=== PATIENT | male | born 1960 | race Caucasian/White ===

== ENCOUNTER → 2016-04-12 | Outpatient (CLI) | payer BC ==
[~2016-04-12] MED LIST: HYDR25T PO; K-Lyte/Cl25 MEQ PO; MULTI VITAMINS1 TAB PO; ZYRTEC10 MG PO
--- NOTE | ~2016-04-12 | EEG ---
[place], [place] ELECTROENCEPHALOGRAM REPORT NAME: EVERT CLEANING UNIT #: [id number] ROOM: DOCTOR: JR PATRICK MD,TRINA DOS: 04/12/2016 INTERPRETATION: This 55-year-old man on no medications displayed the following underlying rhythms: fairly well organized synchronous 12 Hz, 20-30 microvolts alpha rhythm in both posterior regions. 20 Hz, 10 microvolts, beta rhythms were noted in both precentral regions. There was symmetrical attenuation of posterior alpha rhythm with eye opening. 2 minutes of good hyperventilation produced no significant abnormalities. There was fair driving to photic stimulation without abnormalities. The patient did not fall asleep during this recording. Throughout the session, there were no focal abnormalities or epileptiform activity. IMPRESSION: Normal awake EEG. TRINA PATRICK MD CM:EEG:ELECTROENCEPHALOGRAM REPORT [id number] MD TRINA PATRICK JR
== END | disposition home or self-care (01) ==
LOC: CP 12:59
DX: R42 Dizziness and giddiness (principal); R51 Headache

== ENCOUNTER → 2016-04-17 | Outpatient (CLI) | payer BC | END | disposition home or self-care (01) | LOC: MRI 14:00 | DX: J34.1 Cyst and mucocele of nose and nasal sinus (principal); R51 Headache; R55 Syncope and collapse ==